=== PATIENT | male | born 1960 | race Caucasian/White ===

== ENCOUNTER → 2016-12-20 | Outpatient (CLI) | payer OTHER ==
[~2016-12-20] VITALS: Ht 177.8 cm; Wt 108.9 kg
[~2016-12-20] MED LIST: ASPIR 8181 M1 PO; LEVEMIR SQ; METFORMIN HCL500 MG PO; TOPROL XL100 MG PO
--- NOTE | ~2016-12-20 | P ---
[facility] [address] [place] [address] PROCEDURE REPORT Name: BRODY KAT Room #: REG PATRICIA Pennie#: [id number] Admission: 12/20/16 Attend Phys: Brayden Hung MD Discharge: Date of : 60 Report #: [id number] THIS REPORT FOR: //name// CC: Humberto Hung DATE OF SERVICE: 12/20/2016 DATE OF SERVICE: 12/20/2016 PREOPERATIVE DIAGNOSIS: Supraventricular tachycardia. POSTOPERATIVE DIAGNOSES: Supraventricular tachycardia. HISTORY: The patient is a 56-year-old with a history of SVT, status post prior EP study at [facility]. At that time, he was noninducible and an empiric slow pathway modification was performed. He also has history of recurrent syncope with a positive tilt table test and pacemaker was placed. The pacemaker did not really help with his symptoms. 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 He is here for EP study and possible ablation. ANESTHESIA: The patient underwent MAC anesthesia with no anesthesia related complications. DESCRIPTION OF PROCEDURE: The patient underwent informed consent. We discussed the details of the procedure including the risks, which include but not limited to bleeding, infection, vascular damage, cardiac perforation, damage to his previously placed pacemaker. He understood these risks and was willing to proceed. As such, the patient was brought to the EP laboratory in a fasting and sedated state and prepped and draped in a sterile fashion. His pacemaker was reprogrammed to a VVI 40 mode. Next, I injected lidocaine into to both groin regions and obtained access to the bilateral femoral veins placing sheaths using the modified Seldinger technique. I placed an 8 and 6-Montserratian short sheath in the right femoral vein and 6 and 7-Montserratian short sheath in the left femoral vein. Under fluoroscopic guidance, I placed 3 quadripolar catheters at the HRA, His, and RV positions and a decapolar catheter easily entered the coronary sinus. Of note, with catheter manipulation, the patient would easily go into SVT. At baseline, the patient was in sinus rhythm with a sinus cycle length of 595 milliseconds, NH interval 150 milliseconds, QRS duration 80 milliseconds, QT interval 310 milliseconds, ELAM interval 61 milliseconds and an HV interval 54 milliseconds. With atrial burst pacing, the patient went into SVT with a tachycardia cycle length of 340 milliseconds, a septal VA time of 35 milliseconds. Ventricular entrainment was performed and this demonstrated a [facility] [address] [place] [address] PROCEDURE REPORT Name: BRODY KAT Room #: REG Wyatt Casper#: [id number] Admission: 12/20/16 Attend Phys: Brayden Hung MD Discharge: Date of : 60 Report #: [id number] VA-HV response. Next, I delivered single atrial extrastimuli and the patient would easily go into SVT with a long AH jump. Next, I performed ventricular pacing and VA block was noted at 280 milliseconds. Ventricular ERP was noted at 200 milliseconds at a [address] cycle length with both midline and decremental VA conduction. 3d Mapping and Ablation: Next, I created a detailed 3D geometry of the right atrium with specific emphasis of the slow pathway coronary sinus and His bundle. Next, I performed ablation at the level of a slow pathway which demonstrated only a few junctional beats. I performed a total of 8 ablation lesions. Post-ablation, pacing was performed, AV block was noted at 290 milliseconds. AV zoran ERP was noted at 270 milliseconds at a [address] cycle length. Double atrial extrastimuli were delivered, and no SVT was induced. VA block was noted at 290 milliseconds and ventricular ERP was noted at 190 milliseconds at a [address] cycle length. I performed pacing for about 30 minutes and we had no further SVT. Next, I initiated isoproterenol at 1 mcg per minute and AV block was noted at 250 milliseconds. AV zoran ERP was noted at 230 milliseconds at a [address] cycle length. VA block was less than 260 milliseconds. We performed pacing on iso for approximately 10-15 minutes with no inducible SVT and there were no AV zoran echoes noted. Next, isoproterenol was discontinued and again we performed pacing off of isoproterenol with no induction of tachycardia. As such, we had been testing for approximately an hour with no recurrence of SVT whereas prior to the ablation, it was very easily inducible. As such, catheters and sheaths were pulled. Hemostasis was obtained and the patient awoke neurologically and hemodynamically intact with no complications and no significant bleeding. His pacemaker was reinterrogated, found to be functioning normally and was programmed to its original pacemaker settings. CONCLUSIONS: 1. 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 2. Normal SA zoran function. 3. Normal AV zoran function. 4. Normal His-Purkinje function. 5. No other inducible arrhythmias on or off isoproterenol. 6. Normal pacemaker function post-ablation. By: [id number] Brayden Hung MD /nt
[2016-12-20 06:42] VITALS: BP 128/91
[2016-12-20 07:10] LABS: ABSOLUTE NEUTROPHILS 4.2 thou/uL (1.4-8.2); BASOPHILS 0.3 % (0.0-2.0); EOSINOPHILS 2.3 % (0.0-3.0); HEMATOCRIT 45.8 % (42.0-52.0); HEMOGLOBIN 15.9 gm/dL (14.0-18.0); LYMPHOCYTES 25.2 % (24.0-44.0); MANUAL DIFF NO; MCH 31.2 pg (26.0-34.0); MCHC 34.7 g/dL (28.0-37.0); MCV 89.9 fL (80.0-100.0); MONOCYTES 8.2 % (1.0-8.0); PLATELET COUNT 156 thou/uL (150-400); RDW 13.9 % (10.5-14.5); WBC 6.6 thou/uL (4.0-11.0)
[2016-12-20 07:13] LABS: CREATININE 0.7 mg/dL (0.7-1.3)
[2016-12-20 07:14] LABS: POTASSIUM 4.3 mmol/L (3.5-5.1)
[2016-12-20 07:18] LABS: ALBUMIN 1.7 g/dL (3.4-5.0); TOTAL BILIRUBIN 0.4 mg/dL (<0.1-1.0); TOTAL PROTEIN 7.3 g/dL (6.4-8.2)
[2016-12-20 07:23] LABS: APTT 28.2 Seconds (24.5-32.8); PROTIME 10.3 Seconds (9.3-11.4)
== END ==
LOC: CATH 06:30
PROVIDERS: Internal Medicine Cardiovascular Disease
DX: I47.1 Supraventricular tachycardia (principal); E78.5 Hyperlipidemia, unspecified; I10 Essential (primary) hypertension; E11.9 Type 2 diabetes mellitus without complications; Z98.890 Other specified postprocedural states; I25.10 Atherosclerotic heart disease of native coronary artery without angina pectoris; G47.33 Obstructive sleep apnea (adult) (pediatric); F17.210 Nicotine dependence, cigarettes, uncomplicated
CPT/HCPCS: 62110; 62900; 70005